=== PATIENT | female | born 1990 | race American Indian/Alaskan Native ===

== ENCOUNTER 2016-06-16 18:00 | Emergency (ER) | payer MEDICAID ==
--- NOTE | 2016-06-16 18:45 | Emergency Department Report ---
Chief Complaint: Abdominal Pain Stated Complaint: ABD PAIN X3DAYS Time Seen by Provider: 06/16/16 18:44 - HPI History of Present Illness: Patient here reports abdominal pain x 3 days. She reports using old antibiotic from previous UTI. She said she felt like she had a UTI but not now. Denies urinary burning, Frequency or urgency. Denies nausea or vomiting. Patient reports that she felt this way last she was . Denies any vaginal bleeding or discharge. Menstrual period was April 2016. Pain is 4 out of 10 and located in the pelvic area. Reports that she'll like to have a test. - ROS Review of Systems: All systems are negative unless stated in HPI above. - Exam Vital Signs: Vital Signs 06/16/16 18:12 Temperature 98.1 F Pulse Rate 93 H Respiratory 16 Rate Blood Pressure 125/79 O2 Sat by Pulse 100 Oximetry Physical Exam: General: This is a 25-year-old female well-nourished well-developed in no acute distress. Abdomen: Nontender to palpate in all quadrants. No guarding or rebound tenderness. Normal bowel sounds in all quadrants. CV: S1, S2. Regular rate and rhythm. MSE screening note: Focused history and physical exam performed. Due to findings the following was ordered:see mdm ED Medical Decision Making - Medical Decision Making Medical decision making: Patient seen by provider in triage area. Appropriate protocol activated and patient to main ED to be seen by physician. ED Disposition for MSE Condition: Stable Instructions: Abdominal Pain (ED)
[2016-06-16 19:28] LABS: Basophils % (Auto) 1.4 % (0.0-1.8); Eosinophils % (Auto) 2.5 % (0.0-4.3); Hematocrit 40.7 % (30.3-42.9); Hemoglobin 13.1 gm/dl (10.1-14.3); Mean Corpuscular HGB Conc 32 % (30-34); Mean Corpuscular Hemoglobin 29 pg (28-32); Mean Corpuscular Volume 89 fl (79-97); Platelet Count 289 K/mm3 (140-440); Red Cell Distribution Width 13.9 % (13.2-15.2); White Blood Count 7.1 K/mm3 (4.5-11.0)
[2016-06-16 19:31] LABS: Bacteria,Urine 2+ /HPF (Negative); Bilirubin,Urine NEG (Negative); Blood,Urine NEG (Negative); Ketones,Urine NEG (Negative); Leukocyte Esterase,Urine MOD (Negative); Mucus,Urine FEW /HPF; Nitrite,Urine NEG (Negative); Urobilinogen,Urine < 2.0 mg/dL (<2.0)
[2016-06-16 20:04] LABS: Alanine Aminotransferase 11 units/L (7-56); Albumin/Globulin Ratio 1.1 %; Alkaline Phosphatase 74 units/L (35-129); Amylase 127 units/L (27-131); BUN/Creatinine Ratio 12.85; Bilirubin,Total < 0.2 mg/dL (0.1-1.2); Blood Urea Nitrogen 9 mg/dL (7-17); Calcium 9.4 mg/dL (8.4-10.2); Carbon Dioxide 25 mmol/L (22-30); Chloride 102.7 mmol/L (98-107); Glucose 89 mg/dL (65-100); Lipase 24 units/L (13-60); Potassium 4.2 mmol/L (3.6-5.0); Sodium 139 mmol/L (137-145); Total Protein 7.7 g/dL (6.3-8.2)
[2016-06-16 20:07] LABS: Anion Gap 16 mmol/L
[2016-06-17] MEDS ORDERED: ULTRAM PO ONE (03:13)
[2016-06-17] MEDS ORDERED: MACROBID PO ONE (03:13)
--- NOTE | 2016-06-17 03:18 | Emergency Department Report ---
ED Abdominal Pain HPI - General Chief Complaint: Abdominal Pain Stated Complaint: ABD PAIN X3DAYS Time Seen by Provider: 06/16/16 18:44 Source: patient Mode of arrival: Ambulatory Limitations: No Limitations - History of Present Illness Initial Comments: 25 year female with past medical history hypertension with and gastric ulcers presents to the hospital complaining of lower abdominal pain 3 days. Pain is in the left lower suprapubic area. Intermittent, described as a sharp and stabbing pain, rate of 4/10 intensity. No aggravating or alleviating factors reported. Patient reports that she did have some mild dysuria and frequency but has decreased since starting leftover antibiotics previously prescribed for UTI. Patient does not know the name of the antibiotics. She was taken initially twice a day but then once a day because she forgot to take it. Nausea reported without vomiting, fever, or diarrhea. Severity scale (0 -10): 0 - Related Data Previous Rx's Medication Instructions Recorded Last Taken Type Nitrofurantoin [place]/M-Cryst 100 mg PO Q12HR #14 capsule 06/17/16 Unknown Rx [Macrobid CAP] traMADol [Ultram 50 MG tab] 50 mg PO Q6HR PRN #20 tablet 06/17/16 Unknown Rx Allergies Allergy/AdvReac Type Severity Reaction Status Date / Time No Known Allergies Allergy Unverified 06/16/16 18:08 ED Review of Systems ROS: Stated complaint: ABD PAIN X3DAYS Other details as noted in HPI Comment: All other systems reviewed and negative Other: Constitutional: No fevers chills Eyes: No eye pain visual changes ENT: No ear pain or throat pain Neck: Denies pain Respiratory: Denies cough wheezing shortness of breath Cardiovascular: Denies chest pain, palpitations, syncope GI: As per HPI : As per HPI Musculoskeletal: Denies back pain, joint swelling Skin: Denies rash, lesions, erythema Neurologic: Denies headache, numbness, weakness Psychiatric: Denies suicidal ideation, hallucinations ED Past Medical Hx - Past Medical History Previous Medical History?: Yes Hx Hypertension: Yes (with ) Additional medical history: Gastric ulcers, Vaginal delivery x 1 - Surgical History Past Surgical History?: No - Social History Smoking Status: Current Every Day Smoker Substance Use Type: Alcohol - Medications Home Medications: Home Medications Medication Instructions Recorded Confirmed Last Taken Type Nitrofurantoin [place]/M-Cryst 100 mg PO Q12HR #14 capsule 06/17/16 Unknown Rx [Macrobid CAP] traMADol [Ultram 50 MG tab] 50 mg PO Q6HR PRN #20 tablet 06/17/16 Unknown Rx ED Physical Exam - General Limitations: No Limitations - Other Other exam information: General: No limitations, patient is alert in no acute distress Head exam: Atraumatic, normocephalic Eyes exam: Normal appearance, pupils equal reactive to light, extraocular movements intact ENT: Moist mucous membrane, normal oropharynx Neck exam: Normal inspection, full range of motion, no meningismus nontender Respiratory exam: Clear to auscultation bilateral, no wheezes, rales, crackles Cardiovascular: Normal rate and rhythm, normal heart sounds Abdomen: Soft, nondistended, and nontender, with normal bowel sounds, no rebound, or guarding Extremity: Full range of motion normal inspection no deformity Back: Normal Inspection, full range of motion, no tenderness Neurologic: Alert, oriented x3, cranial nerves intact, no motor or sensory deficit Psychiatric: normal affect, normal mood Skin: Warm, dry, intact ED Course Vital Signs 06/16/16 06/17/16 06/17/16 18:12 00:37 01:06 Temperature 98.1 F 98.2 F 97.9 F Pulse Rate 93 H 83 93 H Respiratory 16 18 18 Rate Blood Pressure 125/79 Blood Pressure 137/86 [Left] O2 Sat by Pulse 100 100 100 Oximetry 06/17/16 01:50 Temperature Pulse Rate Respiratory 20 Rate Blood Pressure Blood Pressure [Left] O2 Sat by Pulse 99 Oximetry - Reevaluation(s) Reevaluation #1: 06/17/16 03:16 tramadol and Macrobid given 06/17/16 03:16 ED Medical Decision Making - Lab Data Result diagrams: 06/16/16 18:52 06/16/16 18:52 Lab Results 06/16/16 06/16/16 06/16/16 Range/Units 17:00 18:52 18:52 WBC 7.1 (4.5-11.0) K/mm3 RBC 4.60 (3.65-5.03) M/mm3 Hgb 13.1 (10.1-14.3) gm/dl Hct 40.7 (30.3-42.9) % MCV 89 (79-97) fl MCH 29 (28-32) pg MCHC 32 (30-34) % RDW 13.9 (13.2-15.2) % Plt Count 289 (140-440) K/mm3 Lymph % (Auto) 35.2 H (13.4-35.0) % Craig % (Auto) 6.7 (0.0-7.3) % Eos % (Auto) 2.5 (0.0-4.3) % Baso % (Auto) 1.4 (0.0-1.8) % Lymph # 2.5 (1.2-5.4) K/mm3 Craig # 0.5 (0.0-0.8) K/mm3 Eos # 0.2 (0.0-0.4) K/mm3 Baso # 0.1 (0.0-0.1) K/mm3 Seg Neutrophils % 54.2 (40.0-70.0) % Seg Neutrophils # 3.9 (1.8-7.7) K/mm3 Sodium 139 (137-145) mmol/L Potassium 4.2 (3.6-5.0) mmol/L Chloride 102.7 (98-107) mmol/L Carbon Dioxide 25 (22-30) mmol/L Anion Gap 16 mmol/L BUN 9 (7-17) mg/dL Creatinine 0.7 (0.7-1.2) mg/dL Estimated GFR > 60 ml/min BUN/Creatinine Ratio 12.85 % Glucose 89 (65-100) mg/dL Calcium 9.4 (8.4-10.2) mg/dL Total Bilirubin < 0.2 (0.1-1.2) mg/dL AST 20 (5-40) units/L ALT 11 (7-56) units/L Alkaline Phosphatase 74 (35-129) units/L Total Protein 7.7 (6.3-8.2) g/dL Albumin 4.0 (3.9-5) g/dL Albumin/Globulin Ratio 1.1 % Amylase 127 (27-131) units/L Lipase 24 (13-60) units/L HCG, Qual (Negative) Urine Color Yellow (Yellow) Urine Turbidity Clear (Clear) Urine pH 7.0 (5.0-7.0) Ur Specific [place] 1.021 (1.003-1.030) Urine Protein 30 mg/dl (Negative) mg/dL Urine Glucose (UA) Neg (Negative) mg/dL Urine Ketones Neg (Negative) mg/dL Urine Blood Neg (Negative) Urine Nitrite Neg (Negative) Urine Bilirubin Neg (Negative) Urine Urobilinogen < 2.0 (<2.0) mg/dL Ur Leukocyte Esterase Mod (Negative) Urine WBC (Auto) 45.0 H (0.0-6.0) /HPF Urine RBC (Auto) 2.0 (0.0-6.0) /HPF U Epithel Cells (Auto) 2.0 (0-13.0) /HPF Urine Bacteria (Auto) 2+ (Negative) /HPF Urine Mucus Few /HPF 06/16/16 Range/Units 18:52 WBC (4.5-11.0) K/mm3 RBC (3.65-5.03) M/mm3 Hgb (10.1-14.3) gm/dl Hct (30.3-42.9) % MCV (79-97) fl MCH (28-32) pg MCHC (30-34) % RDW (13.2-15.2) % Plt Count (140-440) K/mm3 Lymph % (Auto) (13.4-35.0) % Craig % (Auto) (0.0-7.3) % Eos % (Auto) (0.0-4.3) % Baso % (Auto) (0.0-1.8) % Lymph # (1.2-5.4) K/mm3 Craig # (0.0-0.8) K/mm3 Eos # (0.0-0.4) K/mm3 Baso # (0.0-0.1) K/mm3 Seg Neutrophils % (40.0-70.0) % Seg Neutrophils # (1.8-7.7) K/mm3 Sodium (137-145) mmol/L Potassium (3.6-5.0) mmol/L Chloride (98-107) mmol/L Carbon Dioxide (22-30) mmol/L Anion Gap mmol/L BUN (7-17) mg/dL Creatinine (0.7-1.2) mg/dL Estimated GFR ml/min BUN/Creatinine Ratio % Glucose (65-100) mg/dL Calcium (8.4-10.2) mg/dL Total Bilirubin (0.1-1.2) mg/dL AST (5-40) units/L ALT (7-56) units/L Alkaline Phosphatase (35-129) units/L Total Protein (6.3-8.2) g/dL Albumin (3.9-5) g/dL Albumin/Globulin Ratio % Amylase (27-131) units/L Lipase (13-60) units/L HCG, Qual Negative (Negative) Urine Color (Yellow) Urine Turbidity (Clear) Urine pH (5.0-7.0) Ur Specific [place] (1.003-1.030) Urine Protein (Negative) mg/dL Urine Glucose (UA) (Negative) mg/dL Urine Ketones (Negative) mg/dL Urine Blood (Negative) Urine Nitrite (Negative) Urine Bilirubin (Negative) Urine Urobilinogen (<2.0) mg/dL Ur Leukocyte Esterase (Negative) Urine WBC (Auto) (0.0-6.0) /HPF Urine RBC (Auto) (0.0-6.0) /HPF U Epithel Cells (Auto) (0-13.0) /HPF Urine Bacteria (Auto) (Negative) /HPF Urine Mucus /HPF - Medical Decision Making Positive urine white cells the patient states similar symptoms of UTI in the past. She is currently using unknown old UTI medication. Prescribed Macrobid 7 days. Culture sent - Differential Diagnosis , ovarian cyst, UTI, diverticulitis, cervicitis Critical Care Time: No Critical care attestation.: If time is entered above; I have spent that time in minutes in the direct care of this critically ill patient, excluding procedure time. ED Disposition Clinical Impression: UTI (urinary tract infection) Disposition: DISCHARGED TO HOME OR SELFCARE Is pt being admited?: No Does the pt Need Aspirin: No Condition: Stable Instructions: Urinary Tract Infection in Women (ED) Additional Instructions: Take the medication as prescribed. Return not to miss doses and finished the antibiotics completely to decrease possible resistance to the medication in the future. Return if symptoms worsen. Prescriptions: Nitrofurantoin Craig/M-Cryst [Macrobid CAP] 100 mg PO Q12HR #14 capsule traMADol [Ultram 50 MG tab] 50 mg PO Q6HR PRN #20 tablet PRN Reason: Pain Referrals: PRIMARY CARE, [Primary Care Provider] - 3-5 Days [facility] [Provider Group] - 3-5 Days Time of Disposition: 03:17
[2016-06-17 03:44] VITALS: BP 132/80
[2016-06-17] MEDS ORDERED: NACL 0.9% 1000 ML 1,000 ML ONE (03:51)
== END 2016-06-17 03:45 | disposition home or self-care (01) ==
LOC: ED 18:00
DX: N39.0 Urinary tract infection, site not specified (principal); F17.200 Nicotine dependence, unspecified, uncomplicated
CPT/HCPCS: 36415; 80053; 81001; 82150; 83690; 84703; 85025; 87086; 99283; J7030

== ENCOUNTER 2016-12-09 18:21 | Emergency (ER) | payer MEDICAID ==
[2016-12-09 19:08] LABS: Basophils % (Auto) 0.4 % (0.0-1.8); Hematocrit 37.4 % (30.3-42.9); Hemoglobin 12.1 gm/dl (10.1-14.3); Mean Corpuscular HGB Conc 32 % (30-34); Mean Corpuscular Hemoglobin 28 pg (28-32); Mean Corpuscular Volume 87 fl (79-97); Platelet Count 257 K/mm3 (140-440); Red Blood Count 4.29 M/mm3 (3.65-5.03); Red Cell Distribution Width 13.7 % (13.2-15.2); White Blood Count 4.4 K/mm3 (4.5-11.0)
--- NOTE | 2016-12-09 23:54 | Emergency Department Report ---
HPI - General Chief Complaint: Vaginal Bleeding Time Seen by Provider: 12/09/16 23:38 - HPI HPI: Room 18 The patient is a 26-year-old female presenting with a chief complaint of vaginal bleeding. The patient states she is and began having vaginal bleeding 5 days ago. The patient states 3 days ago she went to [facility] and had an ultrasound and labs performed. The patient states her serum hCG was proximal 49. The patient states she was told she was "still ." Patient states today the vaginal bleeding increased. The patient states she's gone through 1 pad today. Patient states she also developed lower abdominal cramping Location: Pelvis Duration: [see above] Quality: Cramping Severity: Mild Modifying factors: [see above] Context: [see above] Mode of transportation: Unknown ED Past Medical Hx - Past Medical History Previous Medical History?: Yes Hx Hypertension: Yes (with ) Hx Psychiatric Treatment: Yes (anxiety) Additional medical history: Gastric ulcers, Vaginal delivery x 1 - Surgical History Past Surgical History?: No - Family History Family history: no significant - Social History Smoking Status: Former Smoker (none times one week) Substance Use Type: None (denies illicit drug use) - Medications Home Medications: Home Medications Medication Instructions Recorded Confirmed Last Taken Type Nitrofurantoin [place]/M-Cryst 100 mg PO Q12HR #14 capsule 06/17/16 Unknown Rx [Macrobid CAP] traMADol [Ultram 50 MG tab] 50 mg PO Q6HR PRN #20 tablet 06/17/16 Unknown Rx ED Review of Systems ROS: Stated complaint: VAG BLEEDING/POSS MISCARRIAGE Other details as noted in HPI Comment: All other systems reviewed and negative Constitutional: denies: chills, fever Eyes: denies: eye pain, eye discharge, vision change ENT: denies: ear pain, throat pain Respiratory: denies: cough, shortness of breath, wheezing Cardiovascular: denies: chest pain, palpitations Endocrine: no symptoms reported Gastrointestinal: abdominal pain Genitourinary: abnormal menses Musculoskeletal: denies: back pain, joint swelling, arthralgia Skin: denies: rash, lesions Neurological: denies: headache, weakness, paresthesias Psychiatric: denies: anxiety, depression Hematological/Lymphatic: denies: easy bleeding, easy bruising Physical Exam - Physical Exam Vital Signs: Vital Signs 12/09/16 18:24 Temperature 98.2 F Pulse Rate 69 Respiratory 18 Rate Blood Pressure 128/81 O2 Sat by Pulse 100 Oximetry Physical Exam: GENERAL: The patient is well-developed well-nourished female lying on stretcher not appearing to be in acute distress. [] HEENT: Normocephalic. Atraumatic. Extraocular motions are intact. Patient has moist mucous membranes. NECK: Supple. Trachea midline CHEST/LUNGS: Clear to auscultation. There is no respiratory distress noted. HEART/CARDIOVASCULAR: Regular. There is no tachycardia. There is no gallop rub or murmur. ABDOMEN: Abdomen is soft, nontender. Patient has normal bowel sounds. There is no abdominal distention. SKIN: There is no rash. There is no edema. There is no diaphoresis. NEURO: The patient is awake, alert, and oriented. The patient is cooperative. The patient has normal speech and gait. MUSCULOSKELETAL: There is no evidence of acute injury. ED Course Vital Signs 12/09/16 18:24 Temperature 98.2 F Pulse Rate 69 Respiratory 18 Rate Blood Pressure 128/81 O2 Sat by Pulse 100 Oximetry ED Medical Decision Making - Lab Data Result diagrams: 12/09/16 18:38 Laboratory Tests 12/09/16 12/09/16 12/09/16 18:38 18:38 18:41 WBC 4.4 L RBC 4.29 Hgb 12.1 Hct 37.4 MCV 87 MCH 28 MCHC 32 RDW 13.7 Plt Count 257 Lymph % (Auto) 54.3 H [place] % (Auto) 6.8 Eos % (Auto) 3.0 Baso % (Auto) 0.4 Lymph # 2.4 [place] # 0.3 Eos # 0.1 Baso # 0.0 Seg Neutrophils % 35.5 L Seg Neutrophils # 1.6 L HCG, Quant 9.46 H Blood Type B POSITIVE Antibody Screen TNR NAYANA Antibody Screen Negative - Radiology Data Radiology results: report reviewed (pelvic ultrasound), image reviewed (pelvic ultrasound) Pelvic ultrasound (read by radiologist)-the uterus and both ovaries have a normal appearance. Minimal fluid in the lower pelvis. No gestational sac is identified on the study. Patient will need to have follow-up studies. The findings are most consistent with either early or failure. - Medical Decision Making Although patient is likely completing a spontaneous the patient will be given a diagnosis of threatened until this can be confirmed by her AUTOMOTIVE MECHANICAL ENGINEER - Differential Diagnosis threatened , spontaneous , incomplete , ectopic pre Critical care attestation.: If time is entered above; I have spent that time in minutes in the direct care of this critically ill patient, excluding procedure time. ED Disposition Clinical Impression: Threatened Disposition: - TO HOME OR SELFCARE Is pt being admited?: No Does the pt Need Aspirin: No Condition: Stable Instructions: Ectopic (ED), Spontaneous Miscarriage (ED), Threatened Miscarriage (ED) Additional Instructions: Return to the emergency department immediately should you develop worsening symptoms, fever, inability to tolerate food or liquid or any other concerns. Referrals: PRIMARY CARE,MD [Primary Care Provider] - 3-5 Days your, AUTOMOTIVE MECHANICAL ENGINEER [Other] - 3-5 Days Time of Disposition: 01:10
[2016-12-10 00:49] VITALS: BP 107/71
--- NOTE | 2016-12-10 01:01 | Ultrasound Report ---
FINAL REPORT PROCEDURE: US OB TRANSVAGINAL TECHNIQUE: Real-time transabdominal and transvaginal sonography of the uterus, placenta, amniotic fluid, adnexa, and fetus was performed with image documentation. Measurements were obtained to determine age/size. M-mode Doppler was used to document heartbeat. CPT 69980 and 74589 HISTORY: vaginal bleeding COMPARISON: No prior studies are available for comparison. FINDINGS: The uterus size is 8.4 x 4.7 x 6.4 centimeters. The endometrial pattern measures 3 millimeters. No gestational sac is identified. Both ovaries have a normal size and echogenicity. There is a moderate amount of fluid in the lower pelvis. The findings are most consistent with early or failure. The patient should have followup studies which could include serial beta HCG levels and repeat ultrasound according to clinical signs and symptomatology. Ectopic is not excluded on the basis of this single study. IMPRESSION: The uterus and both ovaries have a normal appearance. Minimal fluid in the lower pelvis. No gestational sac is identified on this study. The patient will need to have followup studies as discussed above. The findings are most consistent with either early or failure.
--- NOTE | 2016-12-10 01:01 | Ultrasound Report ---
FINAL REPORT PROCEDURE: Ultrasound OB, transabdominal and transvaginal TECHNIQUE: Real-time transabdominal and transvaginal sonography of the uterus, placenta, amniotic fluid, adnexa, and fetus was performed with image documentation. Measurements were obtained to determine age/size. M-mode Doppler was used to document heartbeat. CPT 78452 and 05379 HISTORY: vaginal bleeding COMPARISON: No prior studies are available for comparison. FINDINGS: The uterus size is 8.4 x 4.7 x 6.4 centimeters. The endometrial pattern measures 3 millimeters. No gestational sac is identified. Both ovaries have a normal size and echogenicity. There is a moderate amount of fluid in the lower pelvis. The findings are most consistent with early or failure. The patient should have followup studies which could include serial beta HCG levels and repeat ultrasound according to clinical signs and symptomatology. Ectopic is not excluded on the basis of this single study. IMPRESSION: The uterus and both ovaries have a normal appearance. Minimal fluid in the lower pelvis. No gestational sac is identified on this study. The patient will need to have followup studies as discussed above. The findings are most consistent with either early or failure.
== END 2016-12-10 01:42 | disposition home or self-care (01) ==
LOC: ED 18:21
DX: O20.0 Threatened abortion (principal); O16.9 Unspecified maternal hypertension, unspecified trimester; F41.9 Anxiety disorder, unspecified; Z3A.00 Weeks of gestation of pregnancy not specified; Z87.891 Personal history of nicotine dependence
CPT/HCPCS: 36415; 76801; 76817; 84702; 85025; 86850; 86900; 86901

== ENCOUNTER 2016-12-13 02:15 | Emergency (ER) | payer MEDICAID ==
[2016-12-13] MEDS ORDERED: TORADOL IV ONE (03:19)
[2016-12-13] MEDS ORDERED: NACL 0.9% 1000 ML 1,000 ML IV ONE (03:19)
[2016-12-13 03:27] LABS: Hematocrit 34.1 % (30.3-42.9); Hemoglobin 11.1 gm/dl (10.1-14.3); Mean Corpuscular HGB Conc 33 % (30-34); Mean Corpuscular Hemoglobin 28 pg (28-32); Mean Corpuscular Volume 86 fl (79-97); Platelet Count 242 K/mm3 (140-440); Red Blood Count 3.98 M/mm3 (3.65-5.03); Red Cell Distribution Width 13.4 % (13.2-15.2)
--- NOTE | 2016-12-13 04:00 | Emergency Department Report ---
ED Female HPI - General Chief complaint: Vaginal Bleeding Stated complaint: CHRISTIAN,PASSING BLOOD CLOTS Time Seen by Provider: 12/13/16 03:11 Source: patient, old records reviewed Mode of arrival: Stretcher Limitations: No Limitations - History of Present Illness Initial comments: 26-year-old female with a past medical history of gastric ulcers, anxiety, and -induced hypertension presents to the hospital complaining of continued vaginal bleeding since diagnosed with a miscarriage 3 days ago. Patient was seen and evaluated here by Dr. Stewart on the third for heavy vaginal bleeding. Mild intermittent supra pubic cramping reported. HCG Quant was 9 and ultrasound did not reveal an IUP as per medical record review. Patient states the bleeding has improved and she now has only used 2 pads this whole day. She complains of global severe 10/10 headache that started at 4:30 AM but is constant. No aggravating or alleviating factors. This is different from her previous headaches. Denies associated symptoms include nausea, vomiting, blurred vision, focal weakness, numbness, or syncope. 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: [facility] - Related Data Previous Rx's Medication Instructions Recorded Last Taken Type Nitrofurantoin [place]/M-Cryst 100 mg PO Q12HR #14 capsule 06/17/16 Unknown Rx [Macrobid CAP] traMADol [Ultram 50 MG tab] 50 mg PO Q6HR PRN #20 tablet 06/17/16 Unknown Rx Ibuprofen [Motrin] 600 mg PO Q8H PRN #30 tablet 12/13/16 Unknown Rx traMADol [Ultram 50 MG tab] 50 mg PO Q6HR PRN #20 tablet 12/13/16 Unknown Rx Allergies Allergy/AdvReac Type Severity Reaction Status Date / Time No Known Allergies Allergy Verified 06/17/16 04:01 ED Review of Systems ROS: Stated complaint: CHRISTIAN,PASSING BLOOD CLOTS Other details as noted in HPI Comment: All other systems reviewed and negative Other: Constitutional: No fevers chills Eyes: No eye pain visual changes ENT: No ear pain or throat pain Neck: Denies pain Respiratory: Denies cough wheezing shortness of breath Cardiovascular: Denies chest pain, palpitations, syncope GI: Denies abdominal pain, nausea, vomiting, diarrhea : Denies dysuria Musculoskeletal: Denies back pain Skin: Denies rash, lesions, erythema Neurologic: Denies numbness, weakness Psychiatric: Denies suicidal ideation, hallucinations ED Past Medical Hx - Past Medical History Hx Hypertension: Yes (with ) Hx Psychiatric Treatment: Yes (anxiety) Additional medical history: Gastric ulcers, Vaginal delivery x 1 - Surgical History Past Surgical History?: No - Social History Smoking Status: Current Some Day Smoker Substance Use Type: None - Medications Home Medications: Home Medications Medication Instructions Recorded Confirmed Last Taken Type Nitrofurantoin [place]/M-Cryst 100 mg PO Q12HR #14 capsule 06/17/16 12/13/16 Unknown Rx [Macrobid CAP] traMADol [Ultram 50 MG tab] 50 mg PO Q6HR PRN #20 tablet 06/17/16 12/13/16 Unknown Rx Ibuprofen [Motrin] 600 mg PO Q8H PRN #30 tablet 12/13/16 Unknown Rx traMADol [Ultram 50 MG tab] 50 mg PO Q6HR PRN #20 tablet 12/13/16 Unknown Rx ED Physical Exam - General Limitations: No Limitations - Other Other exam information: General: No limitations, patient is alert in no acute distress Head exam: Atraumatic, normocephalic Eyes exam: Normal appearance, pupils equal reactive to light, extraocular movements intact ENT: Moist mucous membrane, normal oropharynx Neck exam: Normal inspection, full range of motion, no meningismus nontender Respiratory exam: Clear to auscultation bilateral, no wheezes, rales, crackles Cardiovascular: Normal rate and rhythm, normal heart sounds Abdomen: Soft, nondistended, suprapubic tenderness mild, with normal bowel sounds, no rebound, or guarding Extremity: Full range of motion normal inspection no deformity Back: Normal Inspection, full range of motion, no tenderness Neurologic: Alert, oriented x3, cranial nerves intact, no motor or sensory deficit Psychiatric: normal affect, normal mood Skin: Warm, dry, intact ED Course Vital Signs 12/13/16 02:30 Temperature 98 F Pulse Rate 74 Blood Pressure 117/68 O2 Sat by Pulse 96 Oximetry - Reevaluation(s) Reevaluation #1: 12/13/16 05:52 Patient received Toradol for pain and states it helped a little. Twining order prior to discharge. CAT scan did not reveal any acute findings and patient is nontoxic appearing. ED Medical Decision Making - Lab Data Result diagrams: 12/13/16 02:49 Lab Results 07/07/17 07/07/17 Range/Units 02:49 02:49 WBC 5.0 (4.5-11.0) K/mm3 RBC 3.98 (3.65-5.03) M/mm3 Hgb 11.1 (10.1-14.3) gm/dl Hct 34.1 (30.3-42.9) % MCV 86 (79-97) fl MCH 28 (28-32) pg MCHC 33 (30-34) % RDW 13.4 (13.2-15.2) % Plt Count 242 (140-440) K/mm3 Lymph % (Auto) Real Estate Branch Manager Seg Neutrophils % Real Estate Branch Manager HCG, Quant 1.66 (0-4) mIU/mL - Radiology Data Radiology results: report reviewed (ct head: naf) - Medical Decision Making blood type B+ on recent blood work therefore patient does not require RhoGAM. HCG is trending downward confirming diagnosis of miscarriage. No signs of anemia at this time or heavy vaginal bleeding. 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 follow-up will be encouraged Normal saline and Toradol provided for pain and headache. - Differential Diagnosis miscarriage, headache unspecified, migraine, tension, ICH Critical Care Time: No Critical care attestation.: If time is entered above; I have spent that time in minutes in the direct care of this critically ill patient, excluding procedure time. ED Disposition Clinical Impression: Miscarriage, Headache Disposition: [id number]-01 TO HOME OR SELFCARE Is pt being admited?: No Does the pt Need Aspirin: No Condition: Stable Instructions: Spontaneous Miscarriage (ED), Acute Headache (ED) Additional Instructions: Take the medication as prescribed. Return if symptoms worsen. Prescriptions: Ibuprofen [Motrin] 600 mg PO Q8H PRN #30 tablet PRN Reason: Pain traMADol [Ultram 50 MG tab] 50 mg PO Q6HR PRN #20 tablet PRN Reason: Pain Referrals: your, thread marker [Other] - 3-5 Days [facility] [Provider Group] - 3-5 Days Time of Disposition: 05:52
[2016-12-13 04:02] LABS: Blastocytes % (Manual) 0 %; Diff Status Complete; RBC Morphology Normal
--- NOTE | 2016-12-13 05:35 | Cat Scan Report ---
FINAL REPORT PROCEDURE: CT HEAD/BRAIN WO CON TECHNIQUE: Computerized tomography of the head was performed without contrast material. HISTORY: tiwari COMPARISON: No prior studies are available for comparison. FINDINGS: Skull and scalp: Normal. Paranasal sinuses: Normal. Ventricles and subarachnoid spaces: Normal. Cerebrum: No evidence of hemorrhage, acute infarction or mass . Cerebellum and brainstem: No evidence of hemorrhage, acute infarction or mass. Vasculature: Normal. Comments: None. IMPRESSION: There is no evidence of an acute intracranial process
[2016-12-13] MEDS ORDERED: NORCO 5/325 PO ONE (05:52)
[2016-12-13 07:12] VITALS: BP 122/70
== END 2016-12-13 06:10 | disposition home or self-care (01) ==
LOC: ED 02:15
DX: O03.9 Complete or unspecified spontaneous abortion without complication (principal); R51 Headache; Z3A.00 Weeks of gestation of pregnancy not specified; I10 Essential (primary) hypertension; F17.200 Nicotine dependence, unspecified, uncomplicated
CPT/HCPCS: 36415; 70450; 84702; 85007; 85025; 86850; 86900; 86901; 96361; 96374; 99284; J1885; J7030

== ENCOUNTER 2017-01-01 22:03 | Emergency (ER) | payer MEDICAID ==
[2017-01-01 23:09] LABS: Basophils % (Auto) 1.4 % (0.0-1.8); Eosinophils % (Auto) 2.7 % (0.0-4.3); Hematocrit 40.4 % (30.3-42.9); Hemoglobin 13.3 gm/dl (10.1-14.3); Mean Corpuscular HGB Conc 33 % (30-34); Mean Corpuscular Hemoglobin 29 pg (28-32); Mean Corpuscular Volume 88 fl (79-97); Platelet Count 264 K/mm3 (140-440); Red Cell Distribution Width 13.9 % (13.2-15.2); White Blood Count 5.7 K/mm3 (4.5-11.0)
[2017-01-01 23:35] LABS: Alanine Aminotransferase 10 units/L (7-56); Albumin 4.5 g/dL (3.9-5); Albumin/Globulin Ratio 1.3 %; Alkaline Phosphatase 53 units/L (35-129); Anion Gap 18 mmol/L; Blood Urea Nitrogen 9 mg/dL (7-17); Calcium 9.3 mg/dL (8.4-10.2); Carbon Dioxide 22 mmol/L (22-30); Chloride 101.8 mmol/L (98-107); Glucose 88 mg/dL (65-100); Lipase 27 units/L (13-60); Potassium 3.6 mmol/L (3.6-5.0); Sodium 138 mmol/L (137-145); Total Protein 7.9 g/dL (6.3-8.2)
[2017-01-01 23:49] LABS: Bilirubin,Urine NEG (Negative); Blood,Urine NEG (Negative); Ketones,Urine NEG (Negative); Leukocyte Esterase,Urine NEG (Negative); Mucus,Urine FEW /HPF; Nitrite,Urine NEG (Negative); Protein,Urine <15 mg/dL mg/dL (Negative); RBC,Urine < 1.0 /HPF (0.0-6.0); WBC,Urine < 1.0 /HPF (0.0-6.0)
[2017-01-02] MEDS ORDERED: TORADOL IV ONE (06:45)
[2017-01-02] MEDS ORDERED: ZOFRAN IV ONE (06:45)
--- NOTE | 2017-01-02 06:49 | Emergency Department Report ---
ED General Adult HPI - General Chief complaint: Abdominal Pain Stated complaint: ABD PAIN Time Seen by Provider: 01/02/17 06:40 Source: patient, RN notes reviewed, old records reviewed Mode of arrival: Ambulatory Limitations: No Limitations - History of Present Illness Initial comments: 26-year-old female presents to the emergency department complaining of abdominal pain, nausea, and headache. Symptoms began approximately 6 hours prior to arrival in the emergency department. She describes sharp pain in her lower abdomen and in her left upper abdomen. There has been no vomiting. Headache is described as aching pain all over. She denies blurry vision, numbness, or weakness. At this time, her abdominal pain has resolved. She is still complaining of headache and nausea. There are no other complaints. -: Sudden Time: 14:30 Location: head, abdomen Radiation: non-radiation Severity scale (0 -10): 3 Quality: aching Consistency: constant Improves with: none Worsens with: none Associated Symptoms: nausea/vomiting Treatments Prior to Arrival: none - Related Data Previous Rx's Medication Instructions Recorded Last Taken Type Butalb/Acetamin/Caff 50-325-40 1 each PO Q4H PRN #20 tablet 01/02/17 Unknown Rx [Fioricet] Promethazine [Phenergan TAB] 25 mg PO Q6HR PRN #20 tab 01/02/17 Unknown Rx Allergies Allergy/AdvReac Type Severity Reaction Status Date / Time No Known Allergies Allergy Verified 06/17/16 04:01 ED Review of Systems ROS: Stated complaint: ABD PAIN Other details as noted in HPI Comment: All other systems reviewed and negative Gastrointestinal: abdominal pain, nausea Neurological: headache ED Past Medical Hx - Past Medical History Previous Medical History?: Yes Hx Hypertension: Yes (with ) Hx Psychiatric Treatment: Yes (anxiety) Additional medical history: Gastric ulcers, Vaginal delivery x 1 - Surgical History Past Surgical History?: No - Family History Family history: no significant - Social History Smoking Status: Light Tobacco Smoker Substance Use Type: None - Medications Home Medications: Home Medications Medication Instructions Recorded Confirmed Last Taken Type Butalb/Acetamin/Caff 50-325-40 1 each PO Q4H PRN #20 tablet 01/02/17 Unknown Rx [Fioricet] Promethazine [Phenergan TAB] 25 mg PO Q6HR PRN #20 tab 01/02/17 Unknown Rx ED Physical Exam - General Limitations: No Limitations General appearance: alert, in no apparent distress - Head Head exam: Present: atraumatic, normocephalic - Eye Eye exam: Present: normal appearance, PERRL, EOMI - ENT ENT exam: Present: normal exam, normal orophraynx, mucous membranes moist - Neck Neck exam: Present: normal inspection, full ROM. Absent: tenderness - Respiratory Respiratory exam: Present: normal lung sounds bilaterally. Absent: respiratory distress - Cardiovascular Cardiovascular Exam: Present: regular rate, normal rhythm, normal heart sounds - GI/Abdominal GI/Abdominal exam: Present: soft, normal bowel sounds. Absent: distended, tenderness - Extremities Exam Extremities exam: Present: normal inspection, full ROM. Absent: tenderness - Back Exam Back exam: Present: normal inspection, full ROM. Absent: tenderness - Neurological Exam Neurological exam: Present: alert, oriented X3. Absent: motor sensory deficit - Skin Skin exam: Present: warm, dry, intact ED Course Vital Signs 01/01/17 01/02/17 01/02/17 22:23 03:02 03:24 Temperature 98.3 F Pulse Rate 90 Respiratory 18 16 Rate Blood Pressure 110/71 Blood Pressure 121/73 [Right] O2 Sat by Pulse 100 100 100 Oximetry 01/02/17 01/02/17 01/02/17 03:30 04:00 04:30 Temperature Pulse Rate 74 67 79 Respiratory 24 21 Rate Blood Pressure 110/71 113/61 110/71 Blood Pressure [Right] O2 Sat by Pulse 98 100 100 Oximetry 01/02/17 01/02/17 01/02/17 05:00 06:30 07:43 Temperature 98.9 F Pulse Rate 66 95 H 60 Respiratory 18 14 Rate Blood Pressure 106/63 99/58 Blood Pressure 106/62 [Right] O2 Sat by Pulse 100 99 100 Oximetry ED Medical Decision Making - Lab Data Result diagrams: 01/01/17 22:51 01/01/17 22:51 - Medical Decision Making Lab results reviewed and discussed with the patient. Patient reports feeling better with medication. Patient will be discharged home at this time. - Differential Diagnosis abdominal pain, , UTI, dehydration, headache Critical care attestation.: If time is entered above; I have spent that time in minutes in the direct care of this critically ill patient, excluding procedure time. ED Disposition Clinical Impression: Abdominal pain Qualifiers: Abdominal location: lower abdomen, unspecified Qualified Code(s): R10.30 - Lower abdominal pain, unspecified Headache Qualifiers: Headache type: tension-type Headache chronicity pattern: acute headache Intractability: not intractable Qualified Code(s): G44.209 - Tension-type headache, unspecified, not intractable Disposition: - TO HOME OR SELFCARE Is pt being admited?: No Condition: Stable Instructions: Abdominal Pain (ED), Acute Headache (ED) Prescriptions: Butalb/Acetamin/Caff 50-325-40 [Fioricet] 1 each PO Q4H PRN #20 tablet PRN Reason: Headache Promethazine [Phenergan TAB] 25 mg PO Q6HR PRN #20 tab PRN Reason: Nausea Referrals: [facility] [Provider Group] - 3-5 Days Time of Disposition: 08:00
[2017-01-02 07:44] VITALS: BP 106/62
== END 2017-01-02 09:00 | disposition home or self-care (01) ==
LOC: ED 22:03
DX: R10.30 Lower abdominal pain, unspecified (principal); G44.209 Tension-type headache, unspecified, not intractable; F41.9 Anxiety disorder, unspecified; F17.200 Nicotine dependence, unspecified, uncomplicated
CPT/HCPCS: 36415; 80053; 81001; 83690; 84702; 84703; 85025; 96374; 96375; 99283; J1885; J2405

== ENCOUNTER 2017-02-18 11:30 | Emergency (ER) | payer MEDICAID ==
--- NOTE | 2017-02-18 12:25 | Emergency Department Report ---
Chief Complaint: Sore Throat Stated Complaint: COLD AND THROAT HURTS Time Seen by Provider: 02/18/17 12:23 - HPI History of Present Illness: PT c /o chest pain and sore throat x 2 days - ROS Review of Systems: - fever + cough + nasal congestion + headache - Exam Physical Exam: PT looks well, non toxic + cough no exudative pharyngitis MSE screening note: Focused history and physical exam performed. Due to findings the following was ordered: xr, labs ED Disposition for MSE Condition: Stable
[2017-02-18 15:04] LABS: Bilirubin,Urine NEG (Negative); Blood,Urine NEG (Negative); Ketones,Urine NEG (Negative); Leukocyte Esterase,Urine NEG (Negative); Mucus,Urine FEW /HPF; Nitrite,Urine NEG (Negative); Protein,Urine <15 mg/dL mg/dL (Negative); Urobilinogen,Urine < 2.0 mg/dL (<2.0)
--- NOTE | 2017-02-18 15:32 | XRay Report ---
Chest 2 views: History: Cough, chest pain. Findings: Normal cardiomediastinal silhouette. Trachea is midline. No consolidation, pneumothorax or pleural effusion. Impression: No acute cardiopulmonary findings.
[2017-02-18 15:49] VITALS: BP 119/78
[2017-02-18] MEDS ORDERED: PEPCID PO ONE (16:35)
[2017-02-18] MEDS ORDERED: DELTASONE PO ONE (16:36)
[2017-02-18] MEDS ORDERED: DUONEB *Not for PRN Use IH ONE (16:36)
[2017-02-18] MEDS ORDERED: LIDOCAINE VISCOUS 2% MM NR (16:45)
--- NOTE | 2017-02-18 17:26 | Emergency Department Report ---
- General Chief Complaint: Upper Respiratory Infection Stated Complaint: COLD AND THROAT HURTS Time Seen by Provider: 02/18/17 12:23 Source: patient Mode of arrival: Ambulatory Limitations: No Limitations - Related Data Previous Rx's Medication Instructions Recorded Last Taken Type Butalb/Acetamin/Caff 50-325-40 1 each PO Q4H PRN #20 tablet 01/02/17 Unknown Rx [Fioricet] Promethazine [Phenergan TAB] 25 mg PO Q6HR PRN #20 tab 01/02/17 Unknown Rx ALBUTEROL Inhaler [ProAir HFA 1 puff IH Q4H PRN #2 inha 02/18/17 Unknown Rx Inhaler] Benzocaine/Menthol [Cepacol Sore 1 each MM Q4H PRN #1 box 02/18/17 Unknown Rx Throat Lozenge] Brompheniramine/Pseudoephed/Dm 5 ml PO Q4H PRN #1 syrup 02/18/17 Unknown Rx [Bromfed Dm Cough Syrup] Famotidine [Pepcid] 20 mg PO BID PRN #30 tablet 02/18/17 Unknown Rx Naproxen [Naprosyn TAB] 375 mg PO BID PRN #25 tablet 02/18/17 Unknown Rx predniSONE [Deltasone] 20 mg PO QDAY #5 tab 02/18/17 Unknown Rx Allergies Allergy/AdvReac Type Severity Reaction Status Date / Time No Known Allergies Allergy Verified 06/17/16 04:01 ED Review of Systems ROS: Stated complaint: COLD AND THROAT HURTS Other details as noted in HPI ED Past Medical Hx - Past Medical History Hx Hypertension: Yes (with ) Hx Psychiatric Treatment: Yes (anxiety) Additional medical history: Gastric ulcers, Vaginal delivery x 1 - Surgical History Past Surgical History?: No - Social History Smoking Status: Current Every Day Smoker Substance Use Type: None - Medications Home Medications: Home Medications Medication Instructions Recorded Confirmed Last Taken Type Butalb/Acetamin/Caff 50-325-40 1 each PO Q4H PRN #20 tablet 01/02/17 Unknown Rx [Fioricet] Promethazine [Phenergan TAB] 25 mg PO Q6HR PRN #20 tab 01/02/17 Unknown Rx ALBUTEROL Inhaler [ProAir HFA 1 puff IH Q4H PRN #2 inha 02/18/17 Unknown Rx Inhaler] Benzocaine/Menthol [Cepacol Sore 1 each MM Q4H PRN #1 box 02/18/17 Unknown Rx Throat Lozenge] Brompheniramine/Pseudoephed/Dm 5 ml PO Q4H PRN #1 syrup 02/18/17 Unknown Rx [Bromfed Dm Cough Syrup] Famotidine [Pepcid] 20 mg PO BID PRN #30 tablet 02/18/17 Unknown Rx Naproxen [Naprosyn TAB] 375 mg PO BID PRN #25 tablet 02/18/17 Unknown Rx predniSONE [Deltasone] 20 mg PO QDAY #5 tab 02/18/17 Unknown Rx ED Physical Exam - General Limitations: No Limitations ED Course Vital Signs 02/18/17 02/18/17 02/18/17 12:26 15:48 17:17 Temperature 98.7 F 98.7 F Pulse Rate 102 H 84 Pulse Rate [ 60 Bilateral Throughout] Pulse Rate [ 64 Throughout] Respiratory 20 15 Rate Respiratory 18 Rate [Bilateral Throughout] Respiratory 18 Rate [ Throughout] Blood Pressure 119/74 Blood Pressure 119/78 [Right] O2 Sat by Pulse 100 100 Oximetry Critical care attestation.: If time is entered above; I have spent that time in minutes in the direct care of this critically ill patient, excluding procedure time. ED Disposition Clinical Impression: Upper respiratory infection Qualifiers: URI type: unspecified viral URI Qualified Code(s): J06.9 - Acute upper respiratory infection, unspecified; B97.89 - Other viral agents as the cause of diseases classified elsewhere Disposition: DC-01 TO HOME OR SELFCARE Is pt being admited?: No Does the pt Need Aspirin: No Condition: Stable Instructions: Viral Syndrome (ED), Cold Symptoms (ED), Upper Respiratory Infection (ED), Gastroesophageal Reflux Disease (ED) Prescriptions: ALBUTEROL Inhaler [ProAir HFA Inhaler] 1 puff IH Q4H PRN #2 inha PRN Reason: Cough Benzocaine/Menthol [Cepacol Sore Throat Lozenge] 1 each MM Q4H PRN #1 box PRN Reason: Cough Brompheniramine/Pseudoephed/Dm [Bromfed Dm Cough Syrup] 5 ml PO Q4H PRN #1 syrup PRN Reason: Cough Famotidine [Pepcid] 20 mg PO BID PRN #30 tablet PRN Reason: Cough Naproxen [Naprosyn TAB] 375 mg PO BID PRN #25 tablet PRN Reason: Cough predniSONE [Deltasone] 20 mg PO QDAY #5 tab Referrals: EVONNE BISWAS MD [Referring] - 3-5 Days [facility] [Outside] - 3-5 Days Forms: Accompanied Note, Work/School Release Form(ED) Time of Disposition: 17:22
== END 2017-02-18 17:55 | disposition home or self-care (01) ==
LOC: ED 11:30
DX: J06.9 Acute upper respiratory infection, unspecified (principal); B97.89 Other viral agents as the cause of diseases classified elsewhere; I10 Essential (primary) hypertension; F41.9 Anxiety disorder, unspecified; F17.200 Nicotine dependence, unspecified, uncomplicated
CPT/HCPCS: 71020; 81001; 81025; 94640; 99284; J7512

== ENCOUNTER 2017-02-21 16:12 | Emergency (ER) | payer MEDICAID ==
--- NOTE | 2017-02-21 21:18 | Emergency Department Report ---
ED General Adult HPI - General Chief complaint: Pain General Stated complaint: RIGHT SIDE PAIN WHEN BREATHING Time Seen by Provider: 02/21/17 21:12 Source: patient Mode of arrival: Ambulatory Limitations: No Limitations - History of Present Illness Initial comments: pt is a 26 y/o aaf who presents for follow up for uri now presents cough and right chest wall pain that is exacerbated by cough pt tx'd for uri, cxr, ua, hcg all negative from 02/18/2017 pt endorses not taking medications as prescribed , she endorses taking nyquil instead as it work better, pt endorse pain only occurs with cough and movement there is no sob no wheezing no fever no sob no banerjee, pt endorses symptoms for past 3 weeks to 1 month Onset/Timin -: week(s) Location: chest (right flank ) Radiation: non-radiation Severity scale (0 -10): 3 Quality: sharp, other (cough ) Consistency: intermittent Improves with: rest Worsens with: movement, other (cough ) Associated Symptoms: cough, other (congestion). denies: fever/chills, headaches Treatments Prior to Arrival: none - Related Data Previous Rx's Medication Instructions Recorded Last Taken Type Butalb/Acetamin/Caff 50-325-40 1 each PO Q4H PRN #20 tablet 01/02/17 Unknown Rx [Fioricet] Promethazine [Phenergan TAB] 25 mg PO Q6HR PRN #20 tab 01/02/17 Unknown Rx ALBUTEROL Inhaler [ProAir HFA 1 puff IH Q4H PRN #2 inha 02/18/17 Unknown Rx Inhaler] Benzocaine/Menthol [Cepacol Sore 1 each MM Q4H PRN #1 box 02/18/17 Unknown Rx Throat Lozenge] Brompheniramine/Pseudoephed/Dm 5 ml PO Q4H PRN #1 syrup 02/18/17 Unknown Rx [Bromfed Dm Cough Syrup] Famotidine [Pepcid] 20 mg PO BID PRN #30 tablet 02/18/17 Unknown Rx predniSONE [Deltasone] 20 mg PO QDAY #5 tab 02/18/17 Unknown Rx Fluticasone [Flonase] 1 spray NS QDAY #1 bottle 02/21/17 Unknown Rx Ibuprofen [Motrin 800 MG tab] 800 mg PO Q8HR PRN #30 tablet 02/21/17 Unknown Rx Allergies Allergy/AdvReac Type Severity Reaction Status Date / Time No Known Allergies Allergy Verified 02/21/17 17:24 ED Review of Systems ROS: Stated complaint: RIGHT SIDE PAIN WHEN BREATHING Other details as noted in HPI Constitutional: denies: chills, fever Eyes: denies: eye pain, eye discharge, vision change ENT: denies: ear pain, throat pain Respiratory: cough. denies: orthopnea, shortness of breath, wheezing Cardiovascular: denies: chest pain, palpitations Endocrine: no symptoms reported Gastrointestinal: denies: abdominal pain, nausea, diarrhea Genitourinary: denies: urgency, dysuria, discharge Musculoskeletal: denies: back pain, joint swelling, arthralgia Skin: denies: rash, lesions Neurological: denies: headache, weakness, paresthesias Psychiatric: as per HPI Hematological/Lymphatic: denies: easy bleeding, easy bruising ED Past Medical Hx - Past Medical History Hx Hypertension: Yes (with ) Hx Psychiatric Treatment: Yes (anxiety) Additional medical history: Gastric ulcers, Vaginal delivery x 1 - Social History Smoking Status: Current Every Day Smoker Substance Use Type: None - Medications Home Medications: Home Medications Medication Instructions Recorded Confirmed Last Taken Type Butalb/Acetamin/Caff 50-325-40 1 each PO Q4H PRN #20 tablet 01/02/17 Unknown Rx [Fioricet] Promethazine [Phenergan TAB] 25 mg PO Q6HR PRN #20 tab 01/02/17 Unknown Rx ALBUTEROL Inhaler [ProAir HFA 1 puff IH Q4H PRN #2 inha 02/18/17 Unknown Rx Inhaler] Benzocaine/Menthol [Cepacol Sore 1 each MM Q4H PRN #1 box 02/18/17 Unknown Rx Throat Lozenge] Brompheniramine/Pseudoephed/Dm 5 ml PO Q4H PRN #1 syrup 02/18/17 Unknown Rx [Bromfed Dm Cough Syrup] Famotidine [Pepcid] 20 mg PO BID PRN #30 tablet 02/18/17 Unknown Rx predniSONE [Deltasone] 20 mg PO QDAY #5 tab 02/18/17 Unknown Rx Fluticasone [Flonase] 1 spray NS QDAY #1 bottle 02/21/17 Unknown Rx Ibuprofen [Motrin 800 MG tab] 800 mg PO Q8HR PRN #30 tablet 02/21/17 Unknown Rx ED Physical Exam - General Limitations: No Limitations General appearance: alert, in no apparent distress - Head Head exam: Present: atraumatic, normocephalic - Eye Eye exam: Present: normal appearance, PERRL, EOMI Pupils: Present: normal accommodation - ENT ENT exam: Present: mucous membranes moist, TM's normal bilaterally, normal external ear exam - Expanded ENT Exam Expanded Ear exam: Present: normal external inspection, other (tms clear no erythema ) Mouth exam: Present: normal external inspection, tongue normal. Absent: trismus , tongue elevation Throat exam: Positive: normal inspection, tonsillar erythema, other (clear post nasal drip ). Negative: tonsillomegaly, tonsillar exudate, R peritonsillar mass , L peritonsillar mass - Neck Neck exam: Present: normal inspection, full ROM. Absent: tenderness, lymphadenopathy, thyromegaly - Respiratory Respiratory exam: Present: normal lung sounds bilaterally. Absent: respiratory distress - Cardiovascular Cardiovascular Exam: Present: regular rate, normal rhythm. Absent: systolic murmur, diastolic murmur, rubs, gallop - GI/Abdominal GI/Abdominal exam: Present: soft, normal bowel sounds - Rectal Rectal exam: Present: deferred - Extremities Exam Extremities exam: Present: normal inspection - Back Exam Back exam: Present: normal inspection - Neurological Exam Neurological exam: Present: alert, oriented X3 - Psychiatric Psychiatric exam: Present: normal affect, normal mood - Skin Skin exam: Present: warm, dry, intact, normal color. Absent: rash ED Course Vital Signs 02/21/17 17:23 Temperature 97.9 F Pulse Rate 100 H Respiratory 16 Rate Blood Pressure 118/80 O2 Sat by Pulse 100 Oximetry ED Medical Decision Making - Medical Decision Making pt is a 26 y/o aaf who presents for follow up for uri now presents cough and right chest wall pain that is exacerbated by cough pt tx'd for uri, cxr, ua, hcg all negative from 02/18/2017 pt endorses not taking medications as prescribed , she endorses taking nyquil instead as it work better, pt endorse pain only occurs with cough and movement there is no sob no wheezing no fever no sob no banerjee, pt endorses symptoms for past 3 weeks to 1 month , exam: ENT: tms clear, nose; moderate boggy clear post nasal drip pharynx: moderate erythema no exudate no lesions uvula midline no stridor lungs clear bilat all lobes no wheezing, abd: bs x 4 qds soft nontender no rebound no bruit no hernia , no cva tenderness, : labs and cxr from 02/18/2017 unremarkable, pt does not appear toxic, pt instructed to take medication as prescribed, rx: albuterol, naproxen , prednisone, bromfed, and famodiine for reflux on 02/18/2017 , malingering is differential at this time, I asked patient if she has resources to secure medications she advises yes but I have not got them , I dont trust them , pt advises that she will take ibuprofen and flonase as they have worked for her in past, will rx same at this time pt directed to follow up with primary care via [facility] pt verbalized agreement and understanding of same. Critical care attestation.: If time is entered above; I have spent that time in minutes in the direct care of this critically ill patient, excluding procedure time. ED Disposition Clinical Impression: Cough URI (upper respiratory infection) Qualifiers: URI type: acute nasopharyngitis (common cold) Qualified Code(s): J00 - Acute nasopharyngitis [common cold] Disposition: - TO HOME OR SELFCARE Is pt being admited?: No Does the pt Need Aspirin: No Condition: Good Instructions: Upper Respiratory Infection in Children (ED), Cold Symptoms (ED) Additional Instructions: follow up with [facility] [phone] Prescriptions: Fluticasone [Flonase] 1 spray NS QDAY #1 bottle Ibuprofen [Motrin 800 MG tab] 800 mg PO Q8HR PRN #30 tablet PRN Reason: Pain Referrals: REA FARRELL MD [Primary Care Provider] - 3-5 Days Forms: Work/School Release Form(ED) Time of Disposition: 21:33
[2017-02-21 21:45] VITALS: BP 125/76
== END 2017-02-21 21:45 | disposition home or self-care (01) ==
LOC: ED 16:12
DX: J00 Acute nasopharyngitis [common cold] (principal); F17.200 Nicotine dependence, unspecified, uncomplicated
CPT/HCPCS: 99282

== ENCOUNTER 2017-03-27 23:18 | Emergency (ER) | payer MEDICAID ==
[2017-03-28 01:54] LABS: Anion Gap 18 mmol/L; BUN/Creatinine Ratio 12; Blood Urea Nitrogen 7 mg/dL (7-17); Calcium 9.2 mg/dL (8.4-10.2); Carbon Dioxide 21 mmol/L (22-30); Chloride 101.1 mmol/L (98-107); Glucose 86 mg/dL (65-100); Potassium 3.9 mmol/L (3.6-5.0); Sodium 136 mmol/L (137-145)
[2017-03-28 02:01] LABS: Basophils % (Auto) 1.4 % (0.0-1.8); Eosinophils % (Auto) 1.9 % (0.0-4.3); Hematocrit 36.8 % (30.3-42.9); Hemoglobin 12.5 gm/dl (10.1-14.3); Mean Corpuscular HGB Conc 34 % (30-34); Mean Corpuscular Hemoglobin 30 pg (28-32); Mean Corpuscular Volume 87 fl (79-97); Platelet Count 299 K/mm3 (140-440); Red Blood Count 4.23 M/mm3 (3.65-5.03); Red Cell Distribution Width 12.6 % (13.2-15.2); White Blood Count 7.7 K/mm3 (4.5-11.0)
--- NOTE | 2017-03-28 05:06 | XRay Report ---
FINAL REPORT EXAM: XR CHEST ROUTINE 2V HISTORY: Chest pain, especially with inhalation. TECHNIQUE: Frontal and lateral radiographs of the chest were obtained. No prior studies are available for comparison. FINDINGS: The cardiac silhouette and mediastinum are within normal limits. The lungs are clear bilaterally, without focal infiltrate or effusion. There is no pneumothorax. No significant osseous abnormalities are identified. IMPRESSION: No active disease seen in the chest.
[2017-03-28] MEDS ORDERED: TYLENOL PO ONE (07:31)
--- NOTE | 2017-03-28 07:35 | Emergency Department Report ---
HPI - General Chief Complaint: Chest Pain Time Seen by Provider: 03/28/17 07:18 - HPI HPI: This is a 26-year-old -[place] female presents to the emergency department with a 2 day history of some right sided chest and/or rib pain. She says that it is "right under my ribs." The pain worsens with inspiration and when she is laying on the right side. She denies any actual shortness of breath , nausea, vomiting, fever or diaphoresis. She has not taken anything for her symptoms prior to presentation. She denies any past medical history, recent surgery or immobility. She goes to [facility] She is a tobacco smoker but denies any illicit drug use. She also is currently having had 2 positive home tests recently. She denies any abdominal pain, pelvic pain, vaginal bleeding, vaginal discharge, dysuria. ED Past Medical Hx - Past Medical History Hx Hypertension: Yes (with ) Hx Psychiatric Treatment: Yes (anxiety) Additional medical history: Gastric ulcers, Vaginal delivery x 1 - Social History Smoking Status: Current Every Day Smoker Substance Use Type: None - Medications Home Medications: Home Medications Medication Instructions Recorded Confirmed Last Taken Type Butalb/Acetamin/Caff 50-325-40 1 each PO Q4H PRN #20 tablet 01/02/17 Unknown Rx [Fioricet] Promethazine [Phenergan TAB] 25 mg PO Q6HR PRN #20 tab 01/02/17 Unknown Rx ALBUTEROL Inhaler [ProAir HFA 1 puff IH Q4H PRN #2 inha 02/18/17 Unknown Rx Inhaler] Benzocaine/Menthol [Cepacol Sore 1 each MM Q4H PRN #1 box 02/18/17 Unknown Rx Throat Lozenge] Brompheniramine/Pseudoephed/Dm 5 ml PO Q4H PRN #1 syrup 02/18/17 Unknown Rx [Bromfed Dm Cough Syrup] Famotidine [Pepcid] 20 mg PO BID PRN #30 tablet 02/18/17 Unknown Rx predniSONE [Deltasone] 20 mg PO QDAY #5 tab 02/18/17 Unknown Rx Fluticasone [Flonase] 1 spray NS QDAY #1 bottle 02/21/17 Unknown Rx Ibuprofen [Motrin 800 MG tab] 800 mg PO Q8HR PRN #30 tablet 02/21/17 Unknown Rx Acetaminophen 2 tab PO Q4H PRN #20 tablet 03/28/17 Unknown Rx Vit No.130/Iron/Folic 1 each PO QDAY #30 tablet 03/28/17 Unknown Rx [ Tablet] ED Review of Systems ROS: Stated complaint: LUNG PAIN Other details as noted in HPI Comment: All other systems reviewed and negative Constitutional: denies: chills, fever Eyes: denies: eye pain, eye discharge, vision change ENT: denies: ear pain, throat pain Respiratory: denies: cough, shortness of breath, wheezing Cardiovascular: chest pain. denies: palpitations Gastrointestinal: denies: abdominal pain, nausea, diarrhea Genitourinary: denies: urgency, dysuria, discharge Musculoskeletal: denies: back pain, joint swelling, arthralgia Skin: denies: rash, lesions Neurological: denies: headache, weakness, paresthesias Physical Exam - Physical Exam Vital Signs: Vital Signs 03/28/17 03/28/17 00:00 06:35 Temperature 98.6 F Pulse Rate 95 H 74 Respiratory 20 Rate Blood Pressure 107/63 Blood Pressure 124/80 [Left] O2 Sat by Pulse 100 Oximetry Physical Exam: GENERAL: The patient is well-developed well-nourished. HENT: Normocephalic. Atraumatic. Patient has moist mucous membranes. EYES: Extraocular motions are intact. Pupils equal reactive to light bilaterally. NECK: Supple. Trachea is midline. CHEST/LUNGS: Clear to auscultation. There is no respiratory distress noted. HEART/CARDIOVASCULAR: Regular. There is no tachycardia. There is no gallop rub or murmur. ABDOMEN: Abdomen is soft, nontender. Patient has normal bowel sounds. There is no abdominal distention. SKIN: Skin is warm and dry. NEURO: The patient is awake, alert, and oriented. The patient is cooperative. The patient has no focal neurologic deficits. The patient has normal speech. MUSCULOSKELETAL: There is no tenderness or deformity. There is no limitation range of motion. There is no evidence of acute injury. ED Course Vital Signs 03/28/17 03/28/17 00:00 06:35 Temperature 98.6 F Pulse Rate 95 H 74 Respiratory 20 Rate Blood Pressure 107/63 Blood Pressure 124/80 [Left] O2 Sat by Pulse 100 Oximetry ED Medical Decision Making - Lab Data Result diagrams: 03/28/17 01:15 03/28/17 01:15 - EKG Data -: EKG Interpreted by Me EKG shows normal: sinus rhythm, axis, intervals, QRS complexes, ST-T waves Rate: normal - EKG Data When compared to previous EKG there are: previous EKG unavailable Interpretation: normal EKG - Radiology Data Radiology results: image reviewed interpreted by me: Chest x-ray does not show any acute process. There are no pleural effusions, obvious pneumonia and there is no pneumothorax. - Medical Decision Making 26-year-old female presents with some right-sided rib/chest pain going on for the past 2 days. She is also . Patient had signed a radiology waver and had a chest x-ray prior to myself coming on shift but I did read the x-ray and it did not appear to show any pneumonia, pneumothorax, signs of malignancy or any acute process. Labs are unremarkable including a negative troponin and negative d-dimer. EKG did not show any signs of ST elevation [place], ischemia or dysrhythmia. Patient most likely has some musculoskeletal lateral chest and/or rib discomfort. She has low suspicion for acute coronary syndrome as she has a low heart score, low JOSE score. Vital signs stable including being afebrile. She was given some Tylenol for her discomfort. She did have a positive serum test here and was started on vitamins. Since she is not having any abdominal pain, back pain, vaginal bleeding, I did not feel that we needed to evaluate the and any further at this time. However she will return to the ER if she develops any of these symptoms and otherwise was given referrals with primary care and [facility]. - Differential Diagnosis , [place], PE, costochondritis Critical Care Time: No Critical care attestation.: If time is entered above; I have spent that time in minutes in the direct care of this critically ill patient, excluding procedure time. ED Disposition Clinical Impression: Rib pain on right side, Right-sided chest wall pain Qualifiers: Weeks of gestation: less than 8 weeks Qualified Code(s): Z3A.01 - Less than 8 weeks gestation of Disposition: DC-01 TO HOME OR SELFCARE Is pt being admited?: No Condition: Stable Instructions: Chest Pain (ED), (ED), Costochondritis (ED) Additional Instructions: Please follow up with a primary care physician and [facility]. Return to the emergency Department with any worsening of your symptoms or any acute distress. I have started you on vitamins. You can take Tylenol every 4 hours, using weight-based dosing, as needed for fever or discomfort. Otherwise do not take any medications that are not prescribed by a physician. Please stop smoking as it is not only a health risk to yourself but also your baby. Prescriptions: Acetaminophen 2 tab PO Q4H PRN #20 tablet PRN Reason: Pain Vit No.130/Iron/Folic [ Tablet] 1 each PO QDAY #30 tablet Referrals: PRIMARY CAREMD [Primary Care Provider] - 3-5 Days ELISE SCHROEDER MD [Staff Physician] - 3-5 Days [facility] [Outside] - 3-5 Days [facility] [Provider Group] - 3-5 Days [facility] [Provider Group] - 3-5 Days [facility] [Provider Group] - 3-5 Days Time of Disposition: 09:49
[2017-03-28 10:14] VITALS: BP 103/56
== END 2017-03-28 10:15 | disposition home or self-care (01) ==
LOC: ED 23:18
DX: O26.891 Other specified pregnancy related conditions, first trimester (principal); R07.81 Pleurodynia; O16.1 Unspecified maternal hypertension, first trimester; O99.331 Smoking (tobacco) complicating pregnancy, first trimester; F41.9 Anxiety disorder, unspecified; Z3A.01 Less than 8 weeks gestation of pregnancy
CPT/HCPCS: 36415; 71020; 80048; 84484; 84703; 85025; 85379; 93005; 93010; 99284